=== PATIENT | female | born 1995 | race Two or more races ===

== ENCOUNTER 2017-11-05 16:59 | Emergency (ER) | payer BC ==
[2017-11-05 17:15] VITALS: BP 125/66
--- NOTE | 2017-11-05 17:17 | EDM.PDOC ---
ED HPI GENERAL MEDICAL PROBLEM - General Chief Complaint: Medication Administration Stated Complaint: ANXIETY/DEPRESSION/SELF HARM Time Seen by Provider: 11/05/17 17:02 - History of Present Illness INITIAL COMMENTS - FREE TEXT/NARRATIVE: HISTORY AND PHYSICAL: History of present illness: Patient's 22-year-old female presents with a concern of history of anxiety and depression requesting medication considerations pending her appointment with psychiatry on Thursday she denies homicidal suicidal ideation she is calm and collected is just been frustrated with ineffective therapy to date by her description. Review of systems: As per history of present illness and below otherwise all systems reviewed and negative. Past medical history: As per history of present illness and as reviewed below otherwise noncontributory. Surgical history: As per history of present illness and as reviewed below otherwise noncontributory. Social history: No reported history of drug or alcohol abuse. Family history: As per history of present illness and as reviewed below otherwise noncontributory. Physical exam: HEENT: Atraumatic, normocephalic, pupils reactive, negative for conjunctival pallor or scleral icterus, mucous membranes moist, throat clear, neck supple, nontender, trachea midline. Lungs: Clear to auscultation, breath sounds equal bilaterally, chest nontender. Heart: S1S2, regular, negative for clicks, rubs, or JVD. Abdomen: Soft, nondistended, nontender. Negative for masses or hepatosplenomegaly. Negative for costovertebral tenderness. Pelvis: Stable nontender. Genitourinary: Deferred. Rectal: Deferred. Extremities: Atraumatic, negative for cords or calf pain. Neurovascular unremarkable. Neuro: Awake, alert, oriented. Cranial nerves II through XII unremarkable. Cerebellum unremarkable. Motor and sensory unremarkable throughout. Exam nonfocal. Diagnostics: None Therapeutics: None Impression: #1 medical screening exam #2 history of anxiety/depression Definitive disposition and diagnosis as appropriate pending reevaluation and review of above. - Related Data Allergies Allergy/AdvReac Type Severity Reaction Status Date / Time No Known Allergies Allergy Verified 10/31/16 09:28 Home Meds: Home Meds Acetaminophen [Tylenol] 650 mg PO Q6H PRN #30 tablet 11/02/16 [Rx] Amoxicillin/Potassium Clav [Augmentin 875-125 Tablet] 1 each PO Q12H #20 tablet 11/02/16 [Rx] Past Medical History - Past Health History Medical/Surgical History: Denies Medical/Surgical History Respiratory History: Reports: Asthma Musculoskeletal History: Reports: Other (See Below) Other Musculoskeletal History: fx sternum - Past Surgical History Musculoskeletal Surgical History: Reports: None Social & Family History - Family History Family Medical History: Noncontributory HEENT: Reports: Hearing Impairment Cardiac: Reports: Hypertension Endocrine/Metabolic: Reports: Diabetes, type II Oncologic: Reports: Breast - Tobacco Use Smoking Status *Q: Never Smoker Second Hand Smoke Exposure: No - Caffeine Use Caffeine Use: Reports: None - Alcohol Use Days Per Week of Alcohol Use: 1 Number of Drinks Per Day: 1 Total Drinks Per Week: 1 - Recreational Drug Use Recreational Drug Use: No ED ROS GENERAL - Review of Systems Review Of Systems: ROS reveals no pertinent complaints other than HPI. ED EXAM, GENERAL - Physical Exam Exam: See Below (Dictation) Departure - Departure Time of Disposition: 17:16 Disposition: Home, Self-Care 01 Condition: Good Clinical Impression: Encounter for medical screening examination, History of anxiety, History of depression - Discharge Information Referrals: Tona Chavez NP [Primary Care Provider] - Additional Instructions: The following information is given to patients seen in the emergency department who are being discharged to home. This information is to outline your options for follow-up care. We provide all patients seen in our emergency department with a follow-up referral. The need for follow-up, as well as the timing and circumstances, are variable depending upon the specifics of your emergency department visit. If you don't have a primary care physician on staff, we will provide you with a referral. We always advise you to contact your personal physician following an emergency department visit to inform them of the circumstance of the visit and for follow-up with them and/or the need for any referrals to a consulting specialist. The emergency department will also refer you to a specialist when appropriate. This referral assures that you have the opportunity for followup care with a specialist. All of these measure are taken in an effort to provide you with optimal care, which includes your followup. Under all circumstances we always encourage you to contact your private physician who remains a resource for coordinating your care. When calling for followup care, please make the office aware that this follow-up is from your recent emergency room visit. If for any reason you are refused follow-up, please contact the [facility] emergency department at and asked to speak to the emergency department charge nurse. Keep scheduled appointment on Thursday has discussed return as needed as discussed ]
== END 2017-11-05 17:25 | disposition home or self-care (01) ==
LOC: MW.ED 16:59
DX: F41.8 Other specified anxiety disorders (principal)
CPT/HCPCS: 99281

== ENCOUNTER 2021-03-21 07:25 | Emergency (ER) | payer BC, OTHER ==
--- NOTE | 2021-03-21 07:29 | EDM.PDOC ---
ED HPI GENERAL MEDICAL PROBLEM - General Chief Complaint: Gastrointestinal Problem Stated Complaint: VOMITING, NAUSEA, DIARRHEA Time Seen by Provider: 03/21/21 07:27 Source of Information: Reports: Patient History Limitations: Reports: No Limitations - History of Present Illness INITIAL COMMENTS - FREE TEXT/NARRATIVE: 25F PMHx anxiety, depression, chronic pelvic floor pain presents for nausea, vomiting, diarrhea, abdominal pain. Symptoms started last night. Patient notes that she had a sick contact at work 2 days ago with similar symptoms. She notes body aches and subjective fever. States that she has been up all night vomiting and with diarrhea. Her abdominal pain is diffuse and not localized. She has not noted any dysuria or urinary frequency. She has had 1 round of Covid Materna vaccination. She has chronic shortness of breath secondary to asthma but no acute changes. She had coughing fits during episodes of vomiting but otherwise no cough. Notes chronic chest pain but denies any changes associated with today's ER visit. general Pain Score (Numeric/FACES): 6 - Related Data Allergies Allergy/AdvReac Type Severity Reaction Status Date / Time animal dander Allergy Anaphylactic Verified 03/21/21 07:52 Shock grass pollen Allergy Anaphylactic Verified 03/21/21 07:52 Shock Home Meds: Home Meds EPINEPHrine [Epipen 2-Lisandro] 1 injection SUBCUT ASDIRECTED PRN 10/10/20 [History] Levalbuterol Tartrate [Xopenex HFA] 2 puff INH Q4H PRN 10/10/20 [History] cloNIDine [Catapres] 1 tab PO TID 10/10/20 [History] diphenhydrAMINE [Benadryl] 2 - 3 tab PO BEDTIME 10/10/20 [History] Loperamide [Imodium] 2 mg PO Q4H PRN #18 cap 03/21/21 [Rx] Ondansetron [Zofran ODT] 4 mg PO Q6H PRN #10 tab.dis 03/21/21 [Rx] diazePAM [Valium.] 1 dose PO ASDIRECTED 03/21/21 [History] Past Medical History - Past Health History Medical/Surgical History: Denies Medical/Surgical History HEENT History: Reports: Allergic Rhinitis, Other (See Below) Other HEENT History: wears glassses/contacts Cardiovascular History: Reports: None Respiratory History: Reports: Asthma Gastrointestinal History: Reports: None Genitourinary History: Reports: None PHOTOGR[employer] History: Reports: None Musculoskeletal History: Reports: Fracture, Other (See Below) Other Musculoskeletal History: fx sternum, fx arm as a child Neurological History: Reports: None Psychiatric History: Reports: Anxiety, Depression, Panic Attack, PTSD Endocrine/Metabolic History: Reports: Obesity/BMI 30+ Hematologic History: Reports: None Immunologic History: Reports: None Oncologic (Cancer) History: Reports: None Dermatologic History: Reports: None - Past Surgical History Head Surgeries/Procedures: Reports: None HEENT Surgical History: Reports: Oral Surgery Other HEENT Surgeries/Procedures: wisdom teeth extraction Cardiovascular Surgical History: Reports: None Respiratory Surgical History: Reports: None GI Surgical History: Reports: None Female Surgical History: Reports: None Endocrine Surgical History: Reports: None Neurological Surgical History: Reports: None Musculoskeletal Surgical History: Reports: None Oncologic Surgical History: Reports: None Dermatological Surgical History: Reports: None Social & Family History - Family History Family Medical History: No Pertinent Family History HEENT: Reports: Hearing Impairment Cardiac: Reports: Hypertension Endocrine/Metabolic: Reports: Diabetes, type II Oncologic: Reports: Breast - Caffeine Use Caffeine Use: Reports: None ED ROS GENERAL - Review of Systems Review Of Systems: Comprehensive ROS is negative, except as noted in HPI. ED EXAM, GENERAL - Physical Exam Exam: See Below Exam Limited By: No Limitations General Appearance: Alert, WD/WN, No Apparent Distress Throat/Mouth: Normal Voice, No Airway Compromise Head: Atraumatic, Normocephalic Neck: Normal Inspection Respiratory/Chest: No Respiratory Distress, Normal Breath Sounds, No Accessory Muscle Use, Other (mild expiratory wheezing) Cardiovascular: Normal Peripheral Pulses, Regular Rate, Rhythm GI/Abdominal: Soft, Non-Tender Extremities: Normal Inspection Neurological: Alert, Normal Cognition Psychiatric: Normal Affect, Normal Mood Skin Exam: Warm, Dry, Intact, Normal Color Course - Vital Signs Last Recorded V/S: Last Vital Signs Temp 98.7 F 03/21/21 07:53 Pulse 108 H 03/21/21 09:48 Resp 18 03/21/21 09:48 BP 123/68 03/21/21 09:48 Pulse Ox 98 03/21/21 09:48 - Orders/Labs/Meds Orders: Active Orders 24 hr Category Date Time Status RT Aerosol Therapy [RC] ASDIRECTED Care 03/21/21 08:29 Active Sodium Chloride 0.9% [Saline Flush] Med 03/21/21 07:54 Active 10 ml FLUSH ASDIRECTED PRN Sodium Chloride 0.9% [Saline Flush] Med 03/21/21 07:54 Active 2.5 ml FLUSH ASDIRECTED PRN Saline Lock Insert [OM.PC] Stat Oth 03/21/21 07:54 Ordered Medication Orders Sodium Chloride (Sodium Chloride 0.9% 10 Ml Syringe) 10 ml FLUSH ASDIRECTED PRN PRN Reason: Keep Vein Open Last Admin: 03/21/21 08:24 Dose: 10 ml Documented by: DAVID Sodium Chloride (Sodium Chloride 0.9% 2.5 Ml Syringe) 2.5 ml FLUSH ASDIRECTED PRN PRN Reason: Keep Vein Open Last Admin: 03/21/21 08:24 Dose: 2.5 ml Documented by: DAVID Labs: Laboratory Tests 03/21/21 03/21/21 03/21/21 Range/Units 07:43 07:43 09:13 WBC 11.64 H (4.0-11.0) K/uL RBC 4.40 (4.30-5.90) M/uL Hgb 13.7 (12.0-16.0) g/dL Hct 40.6 (36.0-46.0) % MCV 92.3 (80.0-98.0) fL MCH 31.1 (27.0-32.0) pg MCHC 33.7 (31.0-37.0) g/dL RDW Std Deviation 45.3 (28.0-62.0) fl RDW Coeff of Javier 13 (11.0-15.0) % Plt Count 323 (150-400) K/uL MPV 11.00 (7.40-12.00) fL Neut % (Auto) 89.7 H (48.0-80.0) % Lymph % (Auto) 5.8 L (16.0-40.0) % Gonzales % (Auto) 4.2 (0.0-15.0) % Eos % (Auto) 0.2 (0.0-7.0) % Baso % (Auto) 0.1 (0.0-1.5) % Neut # (Auto) 10.5 H (1.4-5.7) K/uL Lymph # (Auto) 0.7 (0.6-2.4) K/uL Gonzales # (Auto) 0.5 (0.0-0.8) K/uL Eos # (Auto) 0.0 (0.0-0.7) K/uL Baso # (Auto) 0.0 (0.0-0.1) K/uL Nucleated RBC % 0.0 /100WBC Nucleated RBCs # 0 K/uL Sodium 137 (136-145) mmol/L Potassium 4.0 (3.5-5.1) mmol/L Chloride 102 (98-107) mmol/L Carbon Dioxide 18.4 L (21.0-32.0) mmol/L BUN 14 (7.0-18.0) mg/dL Creatinine 0.9 (0.6-1.0) mg/dL Est Cr Clr Drug Dosing 85.98 mL/min Estimated GFR (MDRD) > 60.0 ml/min Glucose 98 (74-106) mg/dL Calcium 9.2 (8.5-10.1) mg/dL Magnesium 2.0 (1.8-2.4) mg/dL Total Bilirubin 0.5 (0.2-1.0) mg/dL AST 18 (15-37) IU/L ALT 20 (14-63) IU/L Alkaline Phosphatase 76 (46-116) U/L Total Protein 8.9 H (6.4-8.2) g/dL Albumin 3.8 (3.4-5.0) g/dL Globulin 5.1 H (2.6-4.0) g/dL Albumin/Globulin Ratio 0.8 L (0.9-1.6) Lipase 102 (73-393) U/L Urine Color YELLOW Urine Appearance CLEAR Urine pH 5.5 (5.0-8.0) Ur Specific Bradford >= 1.030 (1.001-1.035) Urine Protein NEGATIVE (NEGATIVE) mg/dL Urine Glucose (UA) NEGATIVE (NEGATIVE) mg/dL Urine Ketones >=80 (NEGATIVE) mg/dL Urine Occult Blood MODERATE H (NEGATIVE) Urine Nitrite NEGATIVE (NEGATIVE) Urine Bilirubin SMALL H (NEGATIVE) Urine Ictotest NEGATIVE Urine Urobilinogen 0.2 (<2.0) EU/dL Ur Leukocyte Esterase NEGATIVE (NEGATIVE) Urine RBC 0-2 (0-2/HPF) Urine WBC 0-1 (0-5/HPF) Ur Epithelial Cells FEW (NONE-FEW) Urine Bacteria 1+ H (NEGATIVE) Urine Mucus LIGHT (NONE-MOD) Urine HCG, Qual (NEGATIVE) 03/21/21 Range/Units 09:13 WBC (4.0-11.0) K/uL RBC (4.30-5.90) M/uL Hgb (12.0-16.0) g/dL Hct (36.0-46.0) % MCV (80.0-98.0) fL MCH (27.0-32.0) pg MCHC (31.0-37.0) g/dL RDW Std Deviation (28.0-62.0) fl RDW Coeff of Javier (11.0-15.0) % Plt Count (150-400) K/uL MPV (7.40-12.00) fL Neut % (Auto) (48.0-80.0) % Lymph % (Auto) (16.0-40.0) % Gonzales % (Auto) (0.0-15.0) % Eos % (Auto) (0.0-7.0) % Baso % (Auto) (0.0-1.5) % Neut # (Auto) (1.4-5.7) K/uL Lymph # (Auto) (0.6-2.4) K/uL Gonzales # (Auto) (0.0-0.8) K/uL Eos # (Auto) (0.0-0.7) K/uL Baso # (Auto) (0.0-0.1) K/uL Nucleated RBC % /100WBC Nucleated RBCs # K/uL Sodium (136-145) mmol/L Potassium (3.5-5.1) mmol/L Chloride (98-107) mmol/L Carbon Dioxide (21.0-32.0) mmol/L BUN (7.0-18.0) mg/dL Creatinine (0.6-1.0) mg/dL Est Cr Clr Drug Dosing mL/min Estimated GFR (MDRD) ml/min Glucose (74-106) mg/dL Calcium (8.5-10.1) mg/dL Magnesium (1.8-2.4) mg/dL Total Bilirubin (0.2-1.0) mg/dL AST (15-37) IU/L ALT (14-63) IU/L Alkaline Phosphatase (46-116) U/L Total Protein (6.4-8.2) g/dL Albumin (3.4-5.0) g/dL Globulin (2.6-4.0) g/dL Albumin/Globulin Ratio (0.9-1.6) Lipase (73-393) U/L Urine Color Urine Appearance Urine pH (5.0-8.0) Ur Specific Bradford (1.001-1.035) Urine Protein (NEGATIVE) mg/dL Urine Glucose (UA) (NEGATIVE) mg/dL Urine Ketones (NEGATIVE) mg/dL Urine Occult Blood (NEGATIVE) Urine Nitrite (NEGATIVE) Urine Bilirubin (NEGATIVE) Urine Ictotest Urine Urobilinogen (<2.0) EU/dL Ur Leukocyte Esterase (NEGATIVE) Urine RBC (0-2/HPF) Urine WBC (0-5/HPF) Ur Epithelial Cells (NONE-FEW) Urine Bacteria (NEGATIVE) Urine Mucus (NONE-MOD) Urine HCG, Qual NEGATIVE (NEGATIVE) Meds: Medications Generic Name Dose Route Start Last Admin Trade Name Freq PRN Reason Stop Dose Admin Sodium Chloride 10 ml 03/21/21 07:54 03/21/21 08:24 Sodium Chloride 0.9% 10 Ml Syringe FLUSH 10 ml ASDIRECTED PRN Administration Keep Vein Open Sodium Chloride 2.5 ml 03/21/21 07:54 03/21/21 08:24 Sodium Chloride 0.9% 2.5 Ml Syringe FLUSH 2.5 ml ASDIRECTED PRN Administration Keep Vein Open Discontinued Medications Generic Name Dose Route Start Last Admin Trade Name Freq PRN Reason Stop Dose Admin Albuterol/Ipratropium 3 ml 03/21/21 08:29 03/21/21 08:43 Albuterol/Ipratropium 3.0-0.5 Mg/3 Ml Neb Soln NEB 03/21/21 08:30 3 ml ONETIME ONE Administration Sodium Chloride 1,000 mls @ 999 mls/hr 03/21/21 07:54 03/21/21 08:23 Normal Saline IV 03/21/21 08:54 999 mls/hr .Bolus ONE Administration Iopamidol 100 ml 06/10/21 10:28 03/21/21 10:28 Iopamidol 755 Mg/Ml 500 Ml Multipack Bottle IVPUSH 03/21/21 10:29 100 ml ONETIME STA Administration Morphine Sulfate 4 mg 03/21/21 07:59 03/21/21 08:23 Morphine 4 Mg/Ml Syringe IVPUSH 03/21/21 08:00 4 mg ONETIME ONE Administration Morphine Sulfate 4 mg 03/21/21 09:35 03/21/21 09:47 Morphine 4 Mg/Ml Syringe IVPUSH 03/21/21 09:36 4 mg ONETIME ONE Administration Ondansetron HCl 4 mg 03/21/21 07:54 03/21/21 08:24 Ondansetron 4 Mg/2 Ml Sdv IVPUSH 03/21/21 07:55 4 mg ONETIME ONE Administration - Re-Assessments/Exams Free Text/Narrative Re-Assessment/Exam: 03/21/21 08:01 We will get basic labs. Will treat symptomatically with IV fluid bolus, Zofran, morphine. Will follow up results and disposition accordingly. Will avoid CT imaging in the setting of benign abdominal exam and symptoms consistent with gastroenteritis. 03/21/21 09:35 Patient with a very mild leukocytosis to 11. The rest of her labs are unremarkable. She is still in significant pain so we will get a CT abdomen pelvis to ensure no gross abnormality. Symptoms are likely secondary to endometriosis with possible superimposed gastroenteritis. 03/21/21 11:05 CT imaging remarkable for mild enterocolitis. Will discharge patient with symptomatic relief medications and recommend follow-up with PMD and PHOTOGR[employer]HER [employer]. Departure - Departure Time of Disposition: 11:06 Disposition: Home, Self-Care 01 Condition: Good Clinical Impression: Enterocolitis - Discharge Information Prescriptions: Loperamide [Imodium] 2 mg PO Q4H PRN #18 cap PRN Reason: Diarrhea Ondansetron [Zofran ODT] 4 mg PO Q6H PRN #10 tab.dis PRN Reason: Nausea Instructions: Food Choices to Help Relieve Diarrhea, Adult, Viral Gastroenteritis, Adult, [id number] Referrals: Pema Gutiérrez, [facility] RE[facility] [Primary Care Provider] - Forms: ED Department Discharge Additional Instructions: Your labs were grossly unremarkable. You did have a mild elevated white blood cell count which can be indicative of infection or stress on the body. Your CT imaging shows evidence of enterocolitis which is basically a mild infection of the intestines. These infections are typically viral but even if they are bacterial it is not recommended to treat with antibiotics. Treatment is largely aimed at relieving symptoms and concordantly you were sent medication for nausea and diarrhea to your pharmacy. I would recommend following up with your primary care physician and/or [employer]. The following information is given to patients seen in the emergency department who are being discharged to home. This information is to outline your options for follow-up care. We provide all patients seen in our emergency department with a follow-up referral. The need for follow-up, as well as the timing and circumstances, are variable depending upon the specifics of your emergency department visit. If you don't have a primary care physician on staff, we will provide you with a referral. We always advise you to contact your personal physician following an emergency department visit to inform them of the circumstance of the visit and for follow-up with them and/or the need for any referrals to a consulting specialist. The emergency department will also refer you to a specialist when appropriate. This referral assures that you have the opportunity for follow-up care with a specialist. All of these measure are taken in an effort to provide you with optimal care, which includes your follow-up. Under all circumstances we always encourage you to contact your private physician who remains a resource for coordinating your care. When calling for follow-up care, please make the office aware that this follow-up is from your recent emergency room visit. If for any reason you are refused follow-up, please contact the [facility] Emergency Department at and asked to speak to the emergency department charge nurse. Please follow up with your primary care physician. If you do not have a primary care physician, see below: [facility] [address] [place] [address] [id number] [facility] [address] [place], [place] [id number] [facility] [address] [place] [address] Sepsis Event Note (ED) - Focused Exam Vital Signs: Vital Signs Temp Pulse Resp BP Pulse Ox 03/21/21 09:48 108 H 18 123/68 98 03/21/21 08:30 107 H 18 125/68 99 03/21/21 07:53 98.7 F 76 18 114/77 95 - My Orders Last 24 Hours: My Active Orders 03/21/21 07:54 Sodium Chloride 0.9% [Saline Flush] 10 ml FLUSH ASDIRECTED PRN Sodium Chloride 0.9% [Saline Flush] 2.5 ml FLUSH ASDIRECTED PRN Saline Lock Insert [OM.PC] Stat 03/21/21 08:29 RT Aerosol Therapy [RC] ASDIRECTED - Assessment/Plan Last 24 Hours: My Active Orders 03/21/21 07:54 Sodium Chloride 0.9% [Saline Flush] 10 ml FLUSH ASDIRECTED PRN Sodium Chloride 0.9% [Saline Flush] 2.5 ml FLUSH ASDIRECTED PRN Saline Lock Insert [OM.PC] Stat 03/21/21 08:29 RT Aerosol Therapy [RC] ASDIRECTED
[2021-03-21] MEDS ORDERED: Sodium Chloride 0.9% 2.5 ML Syringe FLUSH PRN (07:54)
[2021-03-21] MEDS ORDERED: Sodium Chloride 0.9% 1,000 ML IV ONE (07:54)
[2021-03-21] MEDS ORDERED: Sodium Chloride 0.9% 10 ML Syringe FLUSH PRN (07:54)
[2021-03-21] MEDS ORDERED: Ondansetron 4 MG/2 ML SDV IVPUSH ONE (07:54)
[2021-03-21] MEDS ORDERED: Morphine 4 MG/ML Syringe IVPUSH ONE ×2 (07:59→09:35)
[2021-03-21 08:15] LABS: BLOOD UREA NITROGEN,BUN 14 mg/dL (7.0-18.0); CARBON DIOXIDE,CO2 18.4 mmol/L (21.0-32.0); CHLORIDE,CL 102 mmol/L (98-107); GLUCOSE RANDOM 98 mg/dL (74-106); LIPASE 102 U/L (73-393); SODIUM,NA 137 mmol/L (136-145)
[2021-03-21] MEDS ORDERED: Albuterol/Ipratropium 3.0-0.5 MG/3 ML Neb Soln NEB ONE (08:29)
[2021-03-21 09:49] VITALS: PULSE 108
[2021-03-21] MEDS ORDERED: Iopamidol 755 MG/ML 500 ML Multipack Bottle IVPUSH STA (10:28)
--- NOTE | 2021-03-21 11:01 | CT ---
For Patients: As a result of the Century Cures Act, medical imaging exams and procedure reports are released immediately into your electronic medical record. You may view this report before your referring provider. If you have questions, please contact your health care provider. Indication: Pelvic pain, history of endometriosis, nausea vomiting and diarrhea Technique: Volumetric multidetector CT images of the abdomen and pelvis were obtained after the administration of intravenous contrast. 100 cc Isovue 370 low osmolar intravenous contrast Comparison: None available. Findings: The lung bases are clear. The liver is normal in attenuation without intrahepatic biliary ductal dilatation. The portal vein is patent. The gallbladder is unremarkable without evidence of radiopaque calculus. There is no significant common biliary ductal dilatation or abrupt cut off. The spleen is normal in enhancement and size. The stomach and duodenum are grossly unremarkable. The pancreas is normal in enhancement without significant atrophy. The adrenal glands are unremarkable. The kidneys demonstrate preserved corticomedullary differentiation without evidence of obstructive uropathy. There is minimal fluid seen throughout the colon and small bowel without evidence of significant perienteric inflammatory changes. Scattered radiopaque debris is seen throughout the bowel. The appendix is unremarkable. There is no significant mesenteric, retroperitoneal, or pelvic sidewall lymph nodes. The aorta is nonaneurysmal. There is no significant atherosclerotic disease appreciated. The solid pelvic viscera are grossly unremarkable. There is no free fluid or free air. There is a fat containing umbilical hernia. The lumbar vertebral body heights are grossly maintained in satisfactory alignment without evidence of displaced fracture, lytic or blastic lesion. Impression: Minimal fluid seen throughout the colon and small bowel which may represent mild enterocolitis. Otherwise, no acute intra-abdominal abnormality is appreciated. Please note that all CT scans at this facility use dose modulation, iterative reconstruction, and/or weight-based dosing when appropriate to reduce radiation dose to as low as reasonably achievable. Dictated by Chirag Garrison MD @ 03/21/2021 10:59:[address] Chirag Garrison @ Mar 21 2021 10:59AM
[2021-03-21 11:37] VITALS: BP 109/85
== END 2021-03-21 11:38 | disposition home or self-care (01) ==
LOC: MW.ED 07:25
DX: K52.9 Noninfective gastroenteritis and colitis, unspecified (principal); E66.9 Obesity, unspecified; Z91.048 Other nonmedicinal substance allergy status; Z68.31 Body mass index [BMI] 31.0-31.9, adult
CPT/HCPCS: 36415; 74177; 80053; 81001; 81025; 83690; 83735; 85025; 96374; 96375; 96376; 99284; J2270; J2405; J7030; Q9967; 99283; J7620-GY

== ENCOUNTER 2021-03-25 04:18 | Emergency (ER) | payer BC ==
[2021-03-25] MEDS ORDERED: Ondansetron 4 MG/2 ML SDV IVPUSH ONE (04:32)
[2021-03-25] MEDS ORDERED: Sodium Chloride 0.9% 1,000 ML IV ONE ×2 (04:32→08:01)
[2021-03-25] MEDS ORDERED: Ketorolac 15 MG/ML SDV IVPUSH ONE (04:32)
--- NOTE | 2021-03-25 04:36 | EDM.PDOC ---
<Jacinto Urias - Last Filed: 03/25/21 04:33> ED HPI GENERAL MEDICAL PROBLEM - General Chief Complaint: Gastrointestinal Problem Stated Complaint: VOMITING, DIARRHEA Time Seen by Provider: 03/25/21 04:28 Source of Information: Reports: Patient History Limitations: Reports: No Limitations - History of Present Illness INITIAL COMMENTS - FREE TEXT/NARRATIVE: Patient is a 25-year-old female who presents today for diffuse abdominal pain and vomiting. Patient was seen here few days ago for similar symptoms and had a CAT scan that showed enterocolitis was sent home. Patient states that since she has been discharged she has not been able to tolerate any solid foods and occasionally have pains but will treat at home with [id number] meds. Cheko saleem states that she has some Jell-O today and agree aggravated the pain and she is now having vomiting. Patient denies any urinary symptoms fever chills back pain chest pain. - Related Data Allergies Allergy/AdvReac Type Severity Reaction Status Date / Time animal dander Allergy Anaphylactic Verified 03/25/21 04:32 Shock grass pollen Allergy Anaphylactic Verified 03/25/21 04:32 Shock Home Meds: Home Meds EPINEPHrine [Epipen 2-Lisandro] 1 injection SUBCUT ASDIRECTED PRN 10/10/20 [History] Levalbuterol Tartrate [Xopenex HFA] 2 puff INH Q4H PRN 10/10/20 [History] cloNIDine [Catapres] 1 tab PO TID 10/10/20 [History] diphenhydrAMINE [Benadryl] 2 - 3 tab PO BEDTIME 10/10/20 [History] Loperamide [Imodium] 2 mg PO Q4H PRN #18 cap 03/21/21 [Rx] Ondansetron [Zofran ODT] 4 mg PO Q6H PRN #10 tab.dis 03/21/21 [Rx] diazePAM [Valium.] 1 dose PO ASDIRECTED 03/21/21 [History] Dicyclomine [Bentyl] 10 mg PO TID PRN #30 cap 03/25/21 [Rx] Ondansetron [Zofran ODT] 4 mg PO Q6H PRN #12 tab.dis 03/25/21 [Rx] oxyCODONE HCl/Acetaminophen [Percocet 10-325 mg Tablet] 0.5 - 1 each PO Q4H PRN #18 tablet 03/25/21 [Rx] Past Medical History - Past Health History Medical/Surgical History: Denies Medical/Surgical History HEENT History: Reports: Allergic Rhinitis, Other (See Below) Other HEENT History: wears glassses/contacts Cardiovascular History: Reports: None Respiratory History: Reports: Asthma Gastrointestinal History: Reports: None Genitourinary History: Reports: None 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 Musculoskeletal History: Reports: Fracture, Other (See Below) Other Musculoskeletal History: fx sternum, fx arm as a child Neurological History: Reports: None Psychiatric History: Reports: Anxiety, Depression, Panic Attack, PTSD Endocrine/Metabolic History: Reports: Obesity/BMI 30+ Hematologic History: Reports: None Immunologic History: Reports: None Oncologic (Cancer) History: Reports: None Dermatologic History: Reports: None - Infectious Disease History Infectious Disease History: Reports: Chicken Pox - Past Surgical History Head Surgeries/Procedures: Reports: None HEENT Surgical History: Reports: Oral Surgery Other HEENT Surgeries/Procedures: wisdom teeth extraction Cardiovascular Surgical History: Reports: None Respiratory Surgical History: Reports: None GI Surgical History: Reports: None Female Surgical History: Reports: None Endocrine Surgical History: Reports: None Neurological Surgical History: Reports: None Musculoskeletal Surgical History: Reports: None Oncologic Surgical History: Reports: None Dermatological Surgical History: Reports: None Social & Family History - Family History Family Medical History: No Pertinent Family History HEENT: Reports: Hearing Impairment Cardiac: Reports: Hypertension Endocrine/Metabolic: Reports: Diabetes, type II Oncologic: Reports: Breast - Tobacco Use Tobacco Use Status *Q: Never Tobacco User - Caffeine Use Caffeine Use: Reports: None - Recreational Drug Use Recreational Drug Use: No ED ROS GENERAL - Review of Systems Review Of Systems: See Below Constitutional: Reports: No Symptoms HEENT: Reports: No Symptoms Respiratory: Reports: No Symptoms Cardiovascular: Reports: No Symptoms Endocrine: Reports: No Symptoms GI/Abdominal: Reports: Abdominal Pain, Nausea, Vomiting : Reports: No Symptoms Musculoskeletal: Reports: No Symptoms Skin: Reports: No Symptoms Neurological: Reports: No Symptoms Psychiatric: Reports: No Symptoms Hematologic/Lymphatic: Reports: No Symptoms Immunologic: Reports: No Symptoms ED EXAM, GI/ABD - Physical Exam Exam: See Below Exam Limited By: No Limitations General Appearance: Alert, Mild Distress Eyes: Bilateral: EOMI Respiratory/Chest: No Respiratory Distress, Lungs Clear, Normal Breath Sounds Cardiovascular: Normal Peripheral Pulses, Regular Rate, Rhythm, No Edema GI/Abdominal Exam: Normal Bowel Sounds, Tender (RUQ) Extremities: Normal Inspection Neurological: Alert, Oriented, CN II-XII Intact, Normal Cognition, Confused Departure - Departure Disposition: Home, Self-Care 01 Clinical Impression: Gastroenteritis - Discharge Information Prescriptions: Dicyclomine [Bentyl] 10 mg PO TID PRN #30 cap PRN Reason: Abdominal Pain oxyCODONE HCl/Acetaminophen [Percocet 10-325 mg Tablet] 0.5 - 1 each PO Q4H PRN #18 tablet PRN Reason: Pain Ondansetron [Zofran ODT] 4 mg PO Q6H PRN #12 tab.dis PRN Reason: Nausea/Vomiting Instructions: Viral Gastroenteritis, Adult, [id number] Referrals: Pema Gutiérrez, [employer] [Primary Care Provider] - Forms: ED Department Discharge Sepsis Event Note (ED) - Evaluation Sepsis Screening Result: No Definite Risk - Assessment/Plan Plan: Patient is a 25-year-old female presents today for some complaints she had a few days ago with abdominal pain vomiting diarrhea after having some Jell-O tonight. Patient had a CT scan a few days ago shows colitis. Will provide IV fluids Zofran pain control and reassess. <Kwadwo Morris - Last Filed: 03/25/21 08:47> Course - Vital Signs Last Recorded V/S: Last Vital Signs Temp 98.2 F 03/25/21 08:31 Pulse 68 03/25/21 08:31 Resp 18 03/25/21 08:31 BP 94/42 L 03/25/21 08:31 Pulse Ox 98 03/25/21 08:31 - Orders/Labs/Meds Orders: Active Orders 24 hr Category Date Time Status Sodium Chloride 0.9% [Normal Saline] 1,000 ml Med 03/25/21 08:01 Active IV .Bolus Medication Orders Sodium Chloride (Normal Saline) 1,000 mls @ 999 mls/hr IV .Bolus ONE Stop: 03/25/21 09:01 Last Admin: 03/25/21 08:05 Dose: 999 mls/hr Documented by: LUIS Labs: Laboratory Tests 03/25/21 03/25/21 03/25/21 Range/Units 05:03 05:03 05:03 WBC 8.23 (4.0-11.0) K/uL RBC 3.93 L (4.30-5.90) M/uL Hgb 12.4 (12.0-16.0) g/dL Hct 36.3 (36.0-46.0) % MCV 92.4 (80.0-98.0) fL MCH 31.6 (27.0-32.0) pg MCHC 34.2 (31.0-37.0) g/dL RDW Std Deviation 44.2 (28.0-62.0) fl RDW Coeff of Javier 13 (11.0-15.0) % Plt Count 324 (150-400) K/uL MPV 10.60 (7.40-12.00) fL Neut % (Auto) 52.7 (48.0-80.0) % Lymph % (Auto) 37.3 (16.0-40.0) % Newberry % (Auto) 6.1 (0.0-15.0) % Eos % (Auto) 3.4 (0.0-7.0) % Baso % (Auto) 0.5 (0.0-1.5) % Neut # (Auto) 4.3 (1.4-5.7) K/uL Lymph # (Auto) 3.1 H (0.6-2.4) K/uL Newberry # (Auto) 0.5 (0.0-0.8) K/uL Eos # (Auto) 0.3 (0.0-0.7) K/uL Baso # (Auto) 0.0 (0.0-0.1) K/uL Nucleated RBC % 0.0 /100WBC Nucleated RBCs # 0 K/uL INR APTT (18.6-31.3) SEC Sodium 137 (136-145) mmol/L Potassium 4.2 (3.5-5.1) mmol/L Chloride 102 (98-107) mmol/L Carbon Dioxide 23.4 (21.0-32.0) mmol/L BUN 12 (7.0-18.0) mg/dL Creatinine 1.0 (0.6-1.0) mg/dL Est Cr Clr Drug Dosing TNP Estimated GFR (MDRD) > 60.0 ml/min Glucose 99 (74-106) mg/dL Calcium 8.6 (8.5-10.1) mg/dL Total Bilirubin 0.3 (0.2-1.0) mg/dL AST 22 (15-37) IU/L ALT 20 (14-63) IU/L Alkaline Phosphatase 65 (46-116) U/L Creatine Kinase 55 (26-308) U/L Total Protein 7.8 (6.4-8.2) g/dL Albumin 3.2 L (3.4-5.0) g/dL Globulin 4.6 H (2.6-4.0) g/dL Albumin/Globulin Ratio 0.7 L (0.9-1.6) Lipase 242 (73-393) U/L HCG, Qual NEGATIVE (NEG) Urine Color Urine Appearance Urine pH (5.0-8.0) Ur Specific Rainelle (1.001-1.035) Urine Protein (NEGATIVE) mg/dL Urine Glucose (UA) (NEGATIVE) mg/dL Urine Ketones (NEGATIVE) mg/dL Urine Occult Blood (NEGATIVE) Urine Nitrite (NEGATIVE) Urine Bilirubin (NEGATIVE) Urine Urobilinogen (<2.0) EU/dL Ur Leukocyte Esterase (NEGATIVE) Urine RBC (0-2/HPF) Urine WBC (0-5/HPF) Ur Epithelial Cells (NONE-FEW) Urine Bacteria (NEGATIVE) Urine Mucus (NONE-MOD) Urine Opiates Screen (NEGATIVE) Ur Oxycodone Screen (NEGATIVE) Urine Methadone Screen (NEGATIVE) Ur Barbiturates Screen (NEGATIVE) Ur Phencyclidine Scrn (NEGATIVE) Ur Amphetamine Screen (NEGATIVE) U Methamphetamines Scrn (NEGATIVE) U Benzodiazepines Scrn (NEGATIVE) U Cocaine Metab Screen (NEGATIVE) U Marijuana (THC) Screen (NEGATIVE) 03/25/21 03/25/21 03/25/21 Range/Units 05:03 07:23 07:23 WBC (4.0-11.0) K/uL RBC (4.30-5.90) M/uL Hgb (12.0-16.0) g/dL Hct (36.0-46.0) % MCV (80.0-98.0) fL MCH (27.0-32.0) pg MCHC (31.0-37.0) g/dL RDW Std Deviation (28.0-62.0) fl RDW Coeff of Javier (11.0-15.0) % Plt Count (150-400) K/uL MPV (7.40-12.00) fL Neut % (Auto) (48.0-80.0) % Lymph % (Auto) (16.0-40.0) % Newberry % (Auto) (0.0-15.0) % Eos % (Auto) (0.0-7.0) % Baso % (Auto) (0.0-1.5) % Neut # (Auto) (1.4-5.7) K/uL Lymph # (Auto) (0.6-2.4) K/uL Newberry # (Auto) (0.0-0.8) K/uL Eos # (Auto) (0.0-0.7) K/uL Baso # (Auto) (0.0-0.1) K/uL Nucleated RBC % /100WBC Nucleated RBCs # K/uL INR 0.95 APTT 23.9 (18.6-31.3) SEC Sodium (136-145) mmol/L Potassium (3.5-5.1) mmol/L Chloride (98-107) mmol/L Carbon Dioxide (21.0-32.0) mmol/L BUN (7.0-18.0) mg/dL Creatinine (0.6-1.0) mg/dL Est Cr Clr Drug Dosing Estimated GFR (MDRD) ml/min Glucose (74-106) mg/dL Calcium (8.5-10.1) mg/dL Total Bilirubin (0.2-1.0) mg/dL AST (15-37) IU/L ALT (14-63) IU/L Alkaline Phosphatase (46-116) U/L Creatine Kinase (26-308) U/L Total Protein (6.4-8.2) g/dL Albumin (3.4-5.0) g/dL Globulin (2.6-4.0) g/dL Albumin/Globulin Ratio (0.9-1.6) Lipase (73-393) U/L HCG, Qual (NEG) Urine Color YELLOW Urine Appearance CLEAR Urine pH 6.0 (5.0-8.0) Ur Specific [place] 1.020 (1.001-1.035) Urine Protein NEGATIVE (NEGATIVE) mg/dL Urine Glucose (UA) NEGATIVE (NEGATIVE) mg/dL Urine Ketones NEGATIVE (NEGATIVE) mg/dL Urine Occult Blood SMALL H (NEGATIVE) Urine Nitrite NEGATIVE (NEGATIVE) Urine Bilirubin NEGATIVE (NEGATIVE) Urine Urobilinogen 0.2 (<2.0) EU/dL Ur Leukocyte Esterase NEGATIVE (NEGATIVE) Urine RBC 0-2 (0-2/HPF) Urine WBC 0-2 (0-5/HPF) Ur Epithelial Cells FEW (NONE-FEW) Urine Bacteria FEW (NEGATIVE) Urine Mucus LIGHT (NONE-MOD) Urine Opiates Screen POSITIVE (NEGATIVE) Ur Oxycodone Screen NEGATIVE (NEGATIVE) Urine Methadone Screen NEGATIVE (NEGATIVE) Ur Barbiturates Screen NEGATIVE (NEGATIVE) Ur Phencyclidine Scrn NEGATIVE (NEGATIVE) Ur Amphetamine Screen NEGATIVE (NEGATIVE) U Methamphetamines Scrn NEGATIVE (NEGATIVE) U Benzodiazepines Scrn NEGATIVE (NEGATIVE) U Cocaine Metab Screen NEGATIVE (NEGATIVE) U Marijuana (THC) Screen NEGATIVE (NEGATIVE) Meds: Medications Generic Name Dose Route Start Last Admin Trade Name Freq PRN Reason Stop Dose Admin Sodium Chloride 1,000 mls @ 999 mls/hr 03/25/21 08:01 03/25/21 08:05 Normal Saline IV 03/25/21 09:01 999 mls/hr .Bolus ONE Administration Discontinued Medications Generic Name Dose Route Start Last Admin Trade Name Freq PRN Reason Stop Dose Admin Sodium Chloride 1,000 mls @ 999 mls/hr 03/25/21 04:32 03/25/21 04:59 Normal Saline IV 03/25/21 05:32 999 mls/hr .BOLUS ONE Administration Ketorolac Tromethamine 15 mg 03/25/21 04:32 03/25/21 04:58 Ketorolac 15 Mg/Ml Sdv IVPUSH 03/25/21 04:33 15 mg ONETIME ONE Administration Metoclopramide HCl 10 mg 03/25/21 06:32 03/25/21 06:48 Metoclopramide 10 Mg/2 Ml Sdv IVPUSH 03/25/21 06:33 10 mg ONETIME ONE Administration Morphine Sulfate 4 mg 03/25/21 06:43 03/25/21 06:48 Morphine 4 Mg/Ml Syringe IVPUSH 03/25/21 06:44 4 mg ONETIME ONE Administration Ondansetron HCl 4 mg 03/25/21 04:32 03/25/21 04:58 Ondansetron 4 Mg/2 Ml Sdv IVPUSH 03/25/21 04:33 4 mg ONETIME ONE Administration - Re-Assessments/Exams Free Text/Narrative Re-Assessment/Exam: 03/25/21 08:39 Right upper quadrant ultrasound is unremarkable. 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 03/25/21 08:45 Patient is feeling better. Will discharge with Bentyl, short course of Percocet, Zofran. Departure - Departure Time of Disposition: 08:45 Condition: Good Sepsis Event Note (ED) - Focused Exam Vital Signs: Vital Signs Temp Pulse Resp BP Pulse Ox 03/25/21 08:31 98.2 F 68 18 94/42 L 98 03/25/21 08:07 68 18 90/32 L 98 03/25/21 07:17 98.4 F 84 18 132/81 98 03/25/21 04:28 97.4 F 70 20 107/60 100 - My Orders Last 24 Hours: My Active Orders 03/25/21 08:01 Sodium Chloride 0.9% [Normal Saline] 1,000 ml IV .Bolus - Assessment/Plan Last 24 Hours: My Active Orders 03/25/21 08:01 Sodium Chloride 0.9% [Normal Saline] 1,000 ml IV .Bolus
[2021-03-25 05:39] LABS: BLOOD UREA NITROGEN,BUN 12 mg/dL (7.0-18.0); CARBON DIOXIDE,CO2 23.4 mmol/L (21.0-32.0); CHLORIDE,CL 102 mmol/L (98-107); GLUCOSE RANDOM 99 mg/dL (74-106); LIPASE 242 U/L (73-393); POTASSIUM,K 4.2 mmol/L (3.5-5.1); SODIUM,NA 137 mmol/L (136-145)
[2021-03-25] MEDS ORDERED: Metoclopramide 10 MG/2 ML SDV IVPUSH ONE (06:32)
[2021-03-25] MEDS ORDERED: Morphine 4 MG/ML Syringe IVPUSH ONE (06:43)
[2021-03-25 08:09] VITALS: PULSE 68
--- NOTE | 2021-03-25 08:31 | US ---
INDICATION: Right upper quadrant abdomen pain TECHNIQUE: Ultrasound abdomen limited. Sonographic images of the right upper quadrant were obtained using cobb-scale and color Doppler images. COMPARISON: CT abdomen pelvis March 21, 2021. FINDINGS: Liver: Normal in size and echotexture. No masses. No intrahepatic biliary dilatation. Portal vein is patent. Gallbladder: No stones or sludge. Normal wall thickness. No pericholecystic fluid. Common bile duct: 3 mm. Pancreas: Normal. Right kidney: Normal in size. Normal echotexture and cortex. No suspicious masses, stones, or hydronephrosis. Vasculature: Proximal abdominal aorta and IVC are normal. IMPRESSION: Unremarkable right upper quadrant ultrasound. No specific finding to explain right upper quadrant pain. Dictated by Damion Gates MD @ 03/25/2021 8:30:[address] Dmaion Gates @ Mar 25 2021 8:30AM
[2021-03-25 09:00] VITALS: BP 98/52
== END 2021-03-25 09:04 | disposition home or self-care (01) ==
LOC: MW.ED 04:18
DX: K52.9 Noninfective gastroenteritis and colitis, unspecified (principal); E66.9 Obesity, unspecified; Z68.30 Body mass index [BMI] 30.0-30.9, adult; Z91.09 Other allergy status, other than to drugs and biological substances
CPT/HCPCS: 36415; 76705; 80053; 80305; 81001; 82550; 83690; 84703; 85025; 85610; 85730; 96374; 96375; 99284; J1885; J2270; J2405; J2765; J7030; 99283

== ENCOUNTER 2023-11-06 07:04 | Emergency (ER) | payer BC ==
[2023-11-06] MEDS ORDERED: Ondansetron 4 MG/2 ML SDV IVPUSH ONE (07:14)
[2023-11-06] MEDS ORDERED: droPERidol 5 MG/2 ML SDV IVPUSH ONE ×2 (07:24→07:54)
[2023-11-06] MEDS ORDERED: Sodium Chloride 0.9% 10 ML Syringe FLUSH PRN (07:54)
[2023-11-06] MEDS ORDERED: Sodium Chloride 0.9% 2.5 ML Syringe FLUSH PRN (07:54)
[2023-11-06 08:00] LABS: BASOPHILS ABSOLUTE AUTO 0.08 K/uL (0.00-0.20); BASOPHILS PERCENT AUTO 0.7 % (0.0-1.0); EOSINOPHILS ABSOLUTE AUTO 0.17 K/uL (0.00-0.45); EOSINOPHILS PERCENT AUTO 1.4 % (0.0-6.0); HEMATOCRIT 39.8 % (37.0-47.0); HEMOGLOBIN 13.4 g/dL (12.0-16.0); IMMATURE GRAN ABSOLUTE AUTO 0.13 K/uL (0.00-0.05); IMMATURE GRAN PERCENT AUTO 1.1 % (0.0-0.4); LYMPHOCYTES ABSOLUTE AUTO 4.28 K/uL (1.00-4.80); LYMPHOCYTES PERCENT AUTO 35.1 % (24.0-44.0); MEAN CORPUSCULAR HGB CONC 33.7 g/dL (32.0-36.0); MEAN PLATELET VOLUME 11.9 fL (9.4-12.3); MONOCYTES ABSOLUTE AUTO 0.94 K/uL (0.00-0.80); MONOCYTES PERCENT AUTO 7.7 % (0.0-8.0); NEUTROPHILS ABSOLUTE AUTO 6.58 K/uL (1.80-7.70); PLATELET COUNT,PLT 308 K/uL (150-400); RED BLOOD CELL COUNT 4.19 M/uL (4.10-5.30); WHITE BLOOD CELL COUNT,WBC 12.18 K/uL (3.9-11.3)
[2023-11-06] MEDS ORDERED: LORazepam 2 MG/ML SDV IVPUSH ONE (08:06)
[2023-11-06 08:10] LABS: A/G RATIO 0.9 (0.9-1.6); ALBUMIN 3.7 g/dL (3.4-5.0); BILIRUBIN TOTAL 0.3 mg/dL (0.2-1.0); CALCIUM 9.4 mg/dL (8.5-10.1); CARBON DIOXIDE,CO2 22.2 mmol/L (21.0-32.0); CREATININE 1.1 mg/dL (0.6-1.0); EST CRCL DRUG DOSING (CG) 68.52 mL/min; POTASSIUM,K 3.6 mmol/L (3.5-5.1)
[2023-11-06] MEDS ORDERED: Sodium Chloride 0.9% 1,000 ML IV ONE (08:55)
[2023-11-06 11:00] LABS: APPEARANCE,URINE SLT CLOUDY; BILIRUBIN,URINE NEGATIVE (NEGATIVE); COLOR,URINE YELLOW; GLUCOSE,URINE NEGATIVE (NEGATIVE); KETONES,URINE 15 mg/dL (NEGATIVE); LEUKOCYTE ESTERASE,URINE NEGATIVE (NEGATIVE); NITRITE,URINE NEGATIVE (NEGATIVE); OCCULT BLOOD,URINE SMALL (NEGATIVE); PH,URINE 8.5 (5.0-8.0); PROTEIN,URINE NEGATIVE (NEGATIVE); UROBILINOGEN,URINE 0.2 EU/dL (<2.0)
[2023-11-06 11:11] LABS: AMORPHOUS SEDIMENT,URINE MODERATE (NEGATIVE); BACTERIA,URINE 1+ (NEGATIVE); EPITHELIAL CELLS,URINE MODERATE (NONE-FEW)
[2023-11-06 11:36] VITALS: BP 125/87; PULSE 78
== END 2023-11-06 11:33 | disposition home or self-care (01) ==
LOC: MW.ED 07:04
DX: R11.2 Nausea with vomiting, unspecified (principal); E66.9 Obesity, unspecified; Z91.048 Other nonmedicinal substance allergy status; Z68.25 Body mass index [BMI] 25.0-25.9, adult
CPT/HCPCS: 36415; 80053; 81001; 83690; 84484; 84703; 85025; 93005; 96361; 96374; 96375; 96376; 99285; J1790; J2060; J3490; J7030; 99284

== ENCOUNTER 2024-02-17 13:57 | Emergency (ER) | payer BC ==
[2024-02-17 14:05] LABS: BASOPHILS ABSOLUTE AUTO 0.05 K/uL (0.00-0.20); BASOPHILS PERCENT AUTO 0.5 % (0.0-1.0); EOSINOPHILS ABSOLUTE AUTO 0.06 K/uL (0.00-0.45); EOSINOPHILS PERCENT AUTO 0.6 % (0.0-6.0); HEMATOCRIT 36.4 % (37.0-47.0); HEMOGLOBIN 12.4 g/dL (12.0-16.0); IMMATURE GRAN ABSOLUTE AUTO 0.04 K/uL (0.00-0.05); IMMATURE GRAN PERCENT AUTO 0.4 % (0.0-0.4); LYMPHOCYTES ABSOLUTE AUTO 2.51 K/uL (1.00-4.80); LYMPHOCYTES PERCENT AUTO 23.6 % (24.0-44.0); MEAN CORPUSCULAR HEMOGLOBIN 32.7 pg (28.0-32.0); MEAN CORPUSCULAR HGB CONC 34.1 g/dL (32.0-36.0); MEAN PLATELET VOLUME 10.3 fL (9.4-12.3); MONOCYTES ABSOLUTE AUTO 0.67 K/uL (0.00-0.80); MONOCYTES PERCENT AUTO 6.3 % (0.0-8.0); NEUTROPHILS ABSOLUTE AUTO 7.31 K/uL (1.80-7.70); NEUTROPHILS PERCENT AUTO 68.6 % (41.0-71.0); PLATELET COUNT,PLT 365 K/uL (150-400); RED BLOOD CELL COUNT 3.79 M/uL (4.10-5.30); WHITE BLOOD CELL COUNT,WBC 10.64 K/uL (3.9-11.3)
[2024-02-17] MEDS: Sodium Chloride 0.9% 1,000 ML IV STA ×2 (14:06→14:31)
[2024-02-17] MEDS: Ondansetron 4 MG/2 ML SDV IVPUSH STA (14:06)
[2024-02-17] MEDS: Sodium Chloride 0.9% 10 ML Syringe FLUSH PRN (14:07)
[2024-02-17] MEDS: Sodium Chloride 0.9% 2.5 ML Syringe FLUSH PRN (14:07)
[2024-02-17 14:30] LABS: A/G RATIO 0.8 (0.9-1.6); ALANINE AMINOTRANSFERASE,ALT 21 IU/L (14-63); ALBUMIN 3.5 g/dL (3.4-5.0); ALKALINE PHOSPHATASE 76 U/L (46-116); ASPARTATE AMNIOTRANSFERASE,AST 20 IU/L (15-37); BILIRUBIN TOTAL 0.4 mg/dL (0.2-1.0); BLOOD UREA NITROGEN,BUN 9 mg/dL (7.0-18.0); CALCIUM 9.2 mg/dL (8.5-10.1); CARBON DIOXIDE,CO2 19.1 mmol/L (21.0-32.0); CHLORIDE,CL 105 mmol/L (98-107); CREATINE KINASE,CK 206 U/L (26-308); GLUCOSE RANDOM 101 mg/dL (74-106); LIPASE 32 U/L (16-77); MAGNESIUM 1.6 mg/dL (1.8-2.4); POTASSIUM,K 3.2 mmol/L (3.5-5.1); SODIUM,NA 141 mmol/L (136-145)
[2024-02-17] MEDS: droPERidol 5 MG/2 ML SDV IVPUSH STA (14:31)
[2024-02-17 14:32] LABS: ESTIMATED GFR 79 mL/min (>60)
[2024-02-17 14:34] LABS: APPEARANCE,URINE CLEAR; BILIRUBIN,URINE NEGATIVE (NEGATIVE); COLOR,URINE YELLOW; GLUCOSE,URINE NEGATIVE (NEGATIVE); KETONES,URINE 15 mg/dL (NEGATIVE); LEUKOCYTE ESTERASE,URINE NEGATIVE (NEGATIVE); NITRITE,URINE NEGATIVE (NEGATIVE); OCCULT BLOOD,URINE NEGATIVE (NEGATIVE); PROTEIN,URINE NEGATIVE (NEGATIVE); UROBILINOGEN,URINE 0.2 EU/dL (<2.0)
[2024-02-17] MEDS: Magnesium Sulfate/Water 2 GM in Premix Bag 1 BAG IV STA (14:41)
[2024-02-17 15:43] VITALS: BP 123/71; PULSE 93
== END 2024-02-17 16:10 | disposition home or self-care (01) ==
LOC: MW.ED 13:57 → MERGE 13:57 → MW.ED 16:10
DX: F15.920 Other stimulant use, unspecified with intoxication, uncomplicated (principal); Z75.8 Other problems related to medical facilities and other health care
CPT/HCPCS: 36415; 80053; 81003; 82550; 83690; 83735; 84484; 84703; 85025; 93005; 96361; 96365; 96375; 96376; 99285; J1790; J2405; J3360; J3475; J3490; J7030; 93010; 99284